=== PATIENT | female | born 1955 | race Caucasian/White ===

== ENCOUNTER 2024-07-02 15:58 | Outpatient (CLI) | payer MEDICARE, MEDICAID ==
[~2024-07-02 15:58] MED LIST: CALC667C2 PO; MAGN400C PO; METF-438 PO; MULT-342 PO; PRIMROSE; VITA-67 PO
--- NOTE | 2024-07-02 19:45 | RADIOLOGY REPORT ---
CLINICAL INDICATION: RIGHT KNEE PAIN TECHNIQUE: DI KNEE LIMITED (AP/LAT) Comparison: None FINDINGS/IMPRESSION: : Minimally displaced fracture and comminuted fracture of the patella. Suprapatellar knee joint effusion, small Normal mineralization and alignment. Joint spaces preserved.
== END 2024-07-02 23:59 | disposition home or self-care (01) ==
LOC: RAD 15:58
PROVIDERS: ATTEND Nurse Practitioner Family
DX: M25.461 Effusion, right knee (principal); M25.561 Pain in right knee
CPT/HCPCS: 73560